=== PATIENT | female | born 1940 | race Caucasian/White ===

== ENCOUNTER 2017-04-29 21:49 | Emergency (ER) | payer OTHER ==
--- NOTE | 2017-04-29 23:27 | RAD ---
EXAM DESCRIPTION: Foot,Left 3 Views CLINICAL HISTORY: 76 years Female ,fall with left great toe and foot pain COMPARISON: None. TECHNIQUE: 3 view FINDINGS: No acute fractures or dislocations are identified. No osseous destructive lesions. There is mild metatarsus primus varus and hallux valgus with mild degenerative change of the first MTP joint. IMPRESSION: No acute fracture is identified. Degenerative change of the first metatarsophalangeal joint Electronically signed by: Wanda Aguila 04/29/2017 11:27 PM CDT
[2017-04-29] MEDS ORDERED: ACETAMINOPHEN 500 MG TAB PO ONE (23:28)
--- NOTE | 2017-04-29 23:29 | ED.PDOC ---
History of Present Illness - General Chief Complaint: Trauma Stated Complaint: fall Time Seen by Provider: 04/29/17 22:36 Source: patient, RN notes reviewed, Vital Signs reviewed, family Additional Information: Pt fell down 6 flights of stairs and is mostly complaining of left riggs pain. Obvious bruising with a skin laceration/abrasion of the anterior left lower leg. She also has an abrasion/laceration of her chin and pain in her left great toe region. She was also c/o some intermittent chest discomfort which has subsided. She states her pain is 5/10 currently. She does not appear to be in distress at rest. - History of Present Illness Occurred: just prior to arrival Severity: moderate Pain Location: face, lower extremity Method of Injury: fall Improving Factors: immobilization Worsening Factors: movement Loss of Consciousness: no loss of consciousness Associated Symptoms (Fall): other - lost footing Allergies/Adverse Reactions: Allergies Meperidine [From Demerol HCl] Allergy (Verified 04/29/17 22:26) Morphine Allergy (Verified 04/29/17 22:26) Potassium Allergy (Verified 04/29/17 22:26) Acetaminophen [From Percocet] Adverse Reaction (Verified 04/29/17 22:26) Aspirin [From Norgesic] Adverse Reaction (Verified 04/29/17 22:26) Caffeine [From Norgesic] Adverse Reaction (Verified 04/29/17 22:26) Codeine Adverse Reaction (Verified 04/29/17 22:26) Meperidine and Related Adverse Reaction (Verified 04/29/17 22:26) Methylprednisolone [From Medrol] Adverse Reaction (Verified 04/29/17 22:26) Naloxone [From Talwin Nx] Adverse Reaction (Verified 04/29/17 22:27) Orphenadrine [From Norgesic] Adverse Reaction (Verified 04/29/17 22:26) Oxycodone [From Percocet] Adverse Reaction (Verified 04/29/17 22:26) Pentazocine [From Talwin Nx] Adverse Reaction (Verified 04/29/17 22:27) Prednisone Adverse Reaction (Verified 04/29/17 22:26) Propoxyphene [From Darvocet-N] Adverse Reaction (Verified 04/29/17 22:27) Sulfa Antibiotics Adverse Reaction (Verified 04/29/17 22:26) Review of Systems - Review of Systems Constitutional: States: no symptoms reported EENTM: States: no symptoms reported Respiratory: States: no symptoms reported Cardiology: States: other - no chest pain currently but she did have a brief period of chest discomfort Gastrointestinal/Abdominal: States: no symptoms reported Musculoskeletal: States: see HPI Skin: States: see HPI Neurological: States: no symptoms reported Endocrine: States: no symptoms reported Hematologic/Lymphatic: States: no symptoms reported Past Medical History (General) - Patient Medical History Hx Seizures: No Hx Stroke: No Hx Dementia: No Hx Asthma: No Hx of COPD: No Hx Cardiac Disorders: Yes - Pacemaker, SVT Hx Congestive Heart Failure: No Hx Pacemaker: Yes Hx Hypertension: Yes Hx Thyroid Disease: Yes - hypothyroid Hx Diabetes: Yes - Type 2 Hx Gastroesophageal Reflux: Yes Hx Renal Disease: Yes - Kidney stones Hx Cancer: No Hx of HIV: No Hx Hepatitis C: No Hx MRSA: No Surgical History: appendectomy, cholecystectomy, pacemaker, Hysterectomy - Vaccination History Hx Tetanus, Diphtheria Vaccination: Yes Hx Influenza Vaccination: Yes Hx Pneumococcal Vaccination: Yes Immunizations Up to Date: Yes - Social History Hx Tobacco Use: No Hx Alcohol Use: No Hx Substance Use: No Hx Substance Use Treatment: No - Activities of Daily Living Hospice Agency (if applicable):: None - Female History Patient is a Female of Child Bearing Age (10 -59 yrs old): No Family Medical History - Family History Father Living Status: Age at (years of age): 90 Hx Family Stroke: Yes Mother Living Status: Age at (years of age): 88 Hx Family Stroke: Yes Physical Exam - Physical Exam General Appearance: Comfortable - at rest, Frail, No apparent distress - at rest Head Injury: no evidence of injury Eye Exam: bilateral normal ENT Exam: hearing grossly normal, no evidence of ENT injury, no dental injury Neck Exam: non-tender, full range of motion, normal alignment, normal inspection Cardiovascular/Respiratory: regular rate, rhythm - with occasional PACs Gastrointestinal/Abdominal: non tender, soft Extremity Exam: tenderness - over left riggs associated with some soft tissue swelling and bruising Neurologic: chief accountant II-XII nml as tested, no motor/sensory deficits, alert, normal mood/affect, oriented x 3 Skin Exam: other - chin laceration - linear; hemostatic - Ajay Coma Score Best Eye Response ([place]): (4) open spontaneously Best Verbal Response ([place]): (5) oriented Best Motor Response ([place]): (6) obeys commands Progress - Progress Progress: 04/30/17 01:47 Pt had imaging studies done of c-spine, chest, Left Tib/Fib, and Left Foot. No fractures noted. Chin laceration repaired with dermabond without difficulty and left riggs laceration repaired with 2 interrupted sutures. Labs and EKG within normal limits and patient stable for discharge home with strict return precautions. - Results/Orders Results/Orders: Laboratory Results - last 24 hr 04/29/17 04/29/17 04/29/17 22:43 22:43 22:43 WBC 8.8 RBC 4.90 Hgb 15.0 Hct 44.3 MCV 90.4 MCH 30.6 MCHC 33.8 RDW 13.8 Plt Count 267 MPV 7.2 L Absolute Neuts (auto) 4.60 Absolute Lymphs (auto) 3.20 Absolute Monos (auto) 0.80 Absolute Eos (auto) 0.20 Absolute Basos (auto) 0.10 Neutrophils % 52.1 Lymphocytes % 36.1 Monocytes % 8.6 Eosinophils % 1.8 Basophils % 1.4 Sodium 134 L Potassium 4.1 Chloride 99 L Carbon Dioxide 24 Anion Gap 15.1 BUN 29 H Creatinine 0.97 BUN/Creatinine Ratio 29.9 H Random Glucose 96 Serum Osmolality 273.9 L Calcium 9.7 Total Bilirubin 0.7 AST 21 ALT 20 Alkaline Phosphatase 31 L Creatine Kinase 57 CK-MB (CK-2) 2.2 CK-MB (CK-2) % Not Reportable Troponin I < 0.02 Serum Total Protein 7.4 Albumin 4.6 Globulin 2.8 Albumin/Globulin Ratio 1.6 04/29/17 04/29/17 04/30/17 22:02 23:42 01:50 Temperature 97.0 F L 97.2 F L Pulse Rate [ 66 62 75 Left radial] Respiratory 20 16 18 Rate Blood Pressure 183/83 147/64 159/77 [Left Arm] O2 Sat by Pulse 93 L 95 95 Oximetry - EKG/XRAY/CT EKG: Sinus - with occasional PACs XRAY: No fractures or acute findings seen Procedures - Laceration/Wound Repair Lower Face Wound Length (cm): 1.5 Wound's Depth, Shape: linear Wound Explored: clean Wound Repaired With: dermabond Left Anterior Calf Wound Length (cm): 1 Wound's Depth, Shape: superficial Wound Explored: clean Anesthesia: 1% Lidocaine Volume Anesthetic (cc's): 3 Wound Repaired With: sutures Suture Size/Type: 3:0 - Ethilon Number of Sutures: 2 Departure - Departure Clinical Impression: Fall Qualifiers: Encounter type: initial encounter Qualified Code(s): W19.XXXA - Unspecified fall, initial encounter Contusion of left lower limb Qualifiers: Encounter type: initial encounter Qualified Code(s): S80.12XA - Contusion of left lower leg, initial encounter Laceration of chin Qualifiers: Encounter type: initial encounter Qualified Code(s): S01.81XA - Laceration without foreign body of other part of head, initial encounter Time of Disposition: :40 Disposition: Discharge to Home or Self Care Condition: Good Departure Forms: ED Discharge - Pt. Copy, Patient Portal Self Enrollment Instructions: DI for Laceration Repair -- Simple, DI for Laceration Repair With Dermabond, DI for Contusion, DI for Avulsion Laceration (Not Requiring Sutures) Activity: increase activity as tolerated - ; start by ambulating with a walker. Additional Instructions: Keep wounds clean and dry. Stitches can come out in 7 to 10 days. Return to ER if condition worsens. Ice bruised and swollen areas at least 2 to 3 times a day to help with pain and swelling. Ok to use over the counter Tylenol (follow label instructions) for pain control as needed.
--- NOTE | 2017-04-29 23:32 | RAD ---
EXAM DESCRIPTION: Chest,1 View CLINICAL HISTORY: 76 years Female chest pain post fall COMPARISON: None. FINDINGS: The cardiomediastinal silhouette appears unremarkable. No consolidating infiltrates or pleural effusions. No pneumothorax. Pacemaker in place with lead tips in the right atrium and right ventricle. Pulmonary hyperinflation which may reflect COPD. IMPRESSION: No acute abnormality is identified. Electronically signed by: Wanda Aguila 04/29/2017 11:32 PM CDT
--- NOTE | 2017-04-29 23:35 | RAD ---
EXAM DESCRIPTION: Tibia/Fibula,Left CLINICAL HISTORY: 76 years Female ,fall COMPARISON: None. TECHNIQUE: Two view FINDINGS: No acute fractures or dislocations are identified. No osseous destructive lesions. There is a small amount of gas along the anterior aspect of the midshaft of the tibia in the soft tissues suggesting laceration or penetrating injury. IMPRESSION: No acute fracture is identified. Gas in the subcutaneous soft tissues over the anterior aspect of the tibia suggesting laceration or penetrating injury. Electronically signed by: Wanda Aguila 04/29/2017 11:34 PM CDT
--- NOTE | 2017-04-29 23:38 | RAD ---
EXAM DESCRIPTION: Cervical Spine,3 Views CLINICAL HISTORY: 76 years Female Fall COMPARISON: None. TECHNIQUE: Three view FINDINGS: There is straightening of the normal lordosis. Narrowing of the disc interspaces at C4-5 C5-6 and C6-7 with subchondral sclerosis and osteophytosis. No evidence of prevertebral soft tissue swelling. The odontoid appears unremarkable without evidence of fracture. Uncovertebral spurring is present at C4-C5 and C6 with facet arthropathy. Cervical ribs at C7. IMPRESSION: No acute fracture is identified. CT could be obtained to better evaluate if there is continued clinical concern. Cervical degenerative change Electronically signed by: Wanda Aguila 04/29/2017 11:38 PM CDT
[2017-04-29 23:45] VITALS: O2SAT 95
[2017-04-30 01:52] VITALS: BP 159/77; TEMP 97.2
== END 2017-04-30 01:45 | disposition home or self-care (01) ==
LOC: ER 21:49
DX: S80.12XA Contusion of left lower leg, initial encounter (principal); S01.81XA Laceration without foreign body of other part of head, initial encounter; E11.9 Type 2 diabetes mellitus without complications; E03.9 Hypothyroidism, unspecified; K21.9 Gastro-esophageal reflux disease without esophagitis; Z95.0 Presence of cardiac pacemaker; Z87.442 Personal history of urinary calculi; Z88.6 Allergy status to analgesic agent; Z88.8 Allergy status to other drugs, medicaments and biological substances; Z88.2 Allergy status to sulfonamides